=== PATIENT | male | born 1960 | race Caucasian/White ===

== ENCOUNTER 2017-08-21 12:50 | Emergency (ER) | payer MEDICARE, MEDICAID ==
[~2017-08-21] VITALS: Ht 170.2 cm; Wt 100.0 kg
[~2017-08-21 12:50] MED LIST: CLIN300C85 PO; HYDR-569 PO; LORA10TA65 PO; PANT-47 PO
[2017-08-21] MEDS ORDERED: SULF1TAB49 PO (13:26)
[2017-08-21] MEDS ORDERED: CEPH500C5 PO (13:26)
[2017-08-21] MEDS ORDERED: sulfamethoxazole/trimethoprim DS (800/160mg) tablet PO ONE (13:30)
[2017-08-21] MEDS ORDERED: cephalexin 250mg capsule PO ONE (13:30)
[2017-08-21 13:40] VITALS: BP 126/50
== END 2017-08-21 13:43 | disposition home or self-care (01) ==
LOC: ER 12:51
DX: L03.116 Cellulitis of left lower limb (principal); L03.115 Cellulitis of right lower limb; F12.90 Cannabis use, unspecified, uncomplicated; F15.90 Other stimulant use, unspecified, uncomplicated; Z86.14 Personal history of Methicillin resistant Staphylococcus aureus infection; Z60.2 Problems related to living alone; Z59.0 Homelessness; Z98.890 Other specified postprocedural states; Z79.899 Other long term (current) drug therapy
CPT/HCPCS: 99284

== ENCOUNTER 2017-11-16 13:19 | Emergency (ER) | payer MEDICARE, MEDICAID ==
[~2017-11-16] VITALS: Ht 172.7 cm; Wt 80.0 kg
[~2017-11-16 13:19] MED LIST changes: +CEPH500C5 PO; +HYDR-4383 PO; -HYDR-569 PO
[2017-11-16] MEDS ORDERED: LIDOcaine 1.5% w/epinephrine 1:200,000 5ml ampul IJ ONE (13:55)
[2017-11-16] MEDS ORDERED: SULF1TAB49 PO (14:24)
[2017-11-16] MEDS ORDERED: TRAM50TA2 PO (14:24)
[2017-11-16 14:36] VITALS: BP 134/71
== END 2017-11-16 14:43 | disposition home or self-care (01) ==
LOC: ER 13:20
DX: L02.415 Cutaneous abscess of right lower limb (principal); F12.90 Cannabis use, unspecified, uncomplicated; F15.90 Other stimulant use, unspecified, uncomplicated; Z59.0 Homelessness; Z56.0 Unemployment, unspecified; Z86.14 Personal history of Methicillin resistant Staphylococcus aureus infection; Z98.890 Other specified postprocedural states; Z79.899 Other long term (current) drug therapy
CPT/HCPCS: 10060; 87070; 87077; 87186; 99284; J3490

== ENCOUNTER 2018-02-11 20:59 | Emergency (ER) | payer MEDICARE, MEDICAID ==
[~2018-02-11] VITALS: Ht 167.6 cm; Wt 71.0 kg
[2018-02-11 21:10] VITALS: BP 143/100
[2018-02-11] MEDS ORDERED: LIDOcaine 1.5% w/epinephrine 1:200,000 5ml ampul IJ ONE (21:30)
[2018-02-11] MEDS ORDERED: LIDOcaine 1% w/epiNEPHrine 1:200,000 30ml vial IJ ONE (21:35)
[2018-02-11] MEDS ORDERED: morphine 10mg/ml inj. IV ONE (21:55)
[2018-02-11] MEDS ORDERED: morphine 5 MG/ML injection IV ONE (21:55)
== END 2018-02-12 00:25 | disposition home or self-care (01) ==
LOC: ER 20:59
DX: S81.812A Laceration without foreign body, left lower leg, initial encounter (principal); Z86.14 Personal history of Methicillin resistant Staphylococcus aureus infection; F12.90 Cannabis use, unspecified, uncomplicated; F15.90 Other stimulant use, unspecified, uncomplicated; Z79.2 Long term (current) use of antibiotics; Z79.899 Other long term (current) drug therapy; Z59.0 Homelessness; Z56.0 Unemployment, unspecified; V19.9XXA Pedal cyclist (driver) (passenger) injured in unspecified traffic accident, initial encounter; Y93.55 Activity, bike riding; Y92.488 Other paved roadways as the place of occurrence of the external cause; Y99.8 Other external cause status
CPT/HCPCS: 12004; 96374; 99283; J2270; J3490

== ENCOUNTER 2018-03-21 15:28 | Emergency (ER) | payer MEDICARE, MEDICAID ==
[~2018-03-21] VITALS: Ht 170.2 cm; Wt 88.6 kg
[2018-03-21] MEDS ORDERED: cephalexin 250mg capsule PO ONE (16:25)
[2018-03-21] MEDS ORDERED: sulfamethoxazole/trimethoprim DS (800/160mg) tablet PO ONE (16:25)
[2018-03-21] MEDS ORDERED: BACDS PO (16:30)
[2018-03-21] MEDS ORDERED: CEPH500C5 PO (16:30)
[2018-03-21 16:35] VITALS: BP 132/76
== END 2018-03-21 16:42 | disposition home or self-care (01) ==
LOC: ER 15:29
DX: L03.116 Cellulitis of left lower limb (principal); F12.90 Cannabis use, unspecified, uncomplicated; F15.90 Other stimulant use, unspecified, uncomplicated; Z86.14 Personal history of Methicillin resistant Staphylococcus aureus infection; Z98.890 Other specified postprocedural states; Z79.899 Other long term (current) drug therapy; Z87.891 Personal history of nicotine dependence; Z59.0 Homelessness; Z56.0 Unemployment, unspecified; Z60.2 Problems related to living alone
CPT/HCPCS: 99283

== ENCOUNTER 2018-05-15 05:30 | Emergency (ER) | payer MEDICARE, MEDICAID ==
[~2018-05-15] VITALS: Ht 170.2 cm; Wt 80.0 kg
[~2018-05-15 05:30] MED LIST changes: +CLIN-96 PO; -CLIN300C85 PO
[2018-05-15 05:38] VITALS: BP 122/75
[2018-05-15] MEDS ORDERED: ibuprofen tablet 400 MG TABLET PO ONE (05:55)
--- NOTE | 2018-05-15 06:11 | NUR ---
declined crutches, noreen wrapped
== END 2018-05-15 06:43 | disposition home or self-care (01) ==
LOC: ER 05:30
DX: S93.492A Sprain of other ligament of left ankle, initial encounter (principal); F12.10 Cannabis abuse, uncomplicated; F15.10 Other stimulant abuse, uncomplicated; Z56.0 Unemployment, unspecified; Z79.899 Other long term (current) drug therapy; W01.0XXA Fall on same level from slipping, tripping and stumbling without subsequent striking against object, initial encounter; Y93.89 Activity, other specified; Y92.89 Other specified places as the place of occurrence of the external cause; Y99.8 Other external cause status
CPT/HCPCS: 73610; 99283

== ENCOUNTER 2019-09-14 07:06 | Emergency (ER) | payer MEDICARE, MEDICAID ==
[~2019-09-14] VITALS: Ht 170.2 cm; Wt 68.2 kg
[~2019-09-14 07:06] MED LIST changes: -CEPH500C5 PO; -CLIN-96 PO; +CLIN-97 PO
[2019-09-14 07:15] VITALS: BP 145/95
== END 2019-09-14 07:41 | disposition home or self-care (01) ==
LOC: ER 07:07
DX: F15.10 Other stimulant abuse, uncomplicated (principal); F12.90 Cannabis use, unspecified, uncomplicated; Z86.69 Personal history of other diseases of the nervous system and sense organs; Z86.14 Personal history of Methicillin resistant Staphylococcus aureus infection; Z98.890 Other specified postprocedural states; Z72.89 Other problems related to lifestyle; Z56.0 Unemployment, unspecified; Z59.0 Homelessness; Z79.2 Long term (current) use of antibiotics; Z79.899 Other long term (current) drug therapy
CPT/HCPCS: 99281

== ENCOUNTER 2019-10-19 13:20 | Emergency (ER) | payer MEDICARE, MEDICAID ==
[~2019-10-19] VITALS: Ht 172.7 cm; Wt 85.0 kg
[2019-10-19] MEDS ORDERED: HYDROcodone/acetaminophen 5mg/325mg tablet PO ONE (13:35)
[2019-10-19 15:04] VITALS: BP 135/100
== END 2019-10-19 15:08 | disposition home or self-care (01) ==
LOC: ER 13:20
DX: M25.572 Pain in left ankle and joints of left foot (principal); R07.89 Other chest pain; F12.90 Cannabis use, unspecified, uncomplicated; F15.90 Other stimulant use, unspecified, uncomplicated; Z86.69 Personal history of other diseases of the nervous system and sense organs; Z86.14 Personal history of Methicillin resistant Staphylococcus aureus infection; Z98.890 Other specified postprocedural states; Z60.2 Problems related to living alone; Z59.0 Homelessness; Z56.0 Unemployment, unspecified; Z79.2 Long term (current) use of antibiotics; Z79.899 Other long term (current) drug therapy; X50.1XXA Overexertion from prolonged static or awkward postures, initial encounter; Y93.89 Activity, other specified; Y92.89 Other specified places as the place of occurrence of the external cause; Y99.8 Other external cause status
CPT/HCPCS: 71100; 73610; 99284

== ENCOUNTER 2020-01-29 16:45 | Emergency (ER) | payer MEDICARE, MEDICAID ==
[~2020-01-29] VITALS: Ht 170.2 cm; Wt 77.3 kg
[2020-01-29 16:57] VITALS: BP 143/81
[2020-01-29] MEDS ORDERED: mupirocin 2% ointment 22GM TP ONE (17:30)
[2020-01-29] MEDS ORDERED: MUPI22OI30 TOP (17:45)
[2020-01-29] MEDS ORDERED: ACET-1008 PO (17:48)
== END 2020-01-29 18:01 | disposition home or self-care (01) ==
LOC: ER 16:46
DX: S60.562A Insect bite (nonvenomous) of left hand, initial encounter (principal); S20.469A Insect bite (nonvenomous) of unspecified back wall of thorax, initial encounter; F15.10 Other stimulant abuse, uncomplicated; F12.10 Cannabis abuse, uncomplicated; Z56.0 Unemployment, unspecified; Z59.0 Homelessness; Z79.899 Other long term (current) drug therapy
CPT/HCPCS: 99283

== ENCOUNTER 2021-02-04 04:57 | Emergency (ER) | payer MEDICARE, MEDICAID ==
[~2021-02-04] VITALS: Ht 167.6 cm; Wt 75.0 kg
[2021-02-04 05:05] VITALS: BP 122/83
[2021-02-04 06:42] LABS: URINE AMPHETAMINE SCREEN POSITIVE (Neg); URINE BARBITUATE SCREEN NEGATIVE (Neg); URINE BENZODIAZEPINES SCREEN NEGATIVE (Neg); URINE CANNABINOID SCREEN POSITIVE (Neg); URINE COCAINE SCREEN NEGATIVE (Neg); URINE METHADONE SCREEN NEGATIVE (Neg); URINE OPIATE SCREEN NEGATIVE (Neg); URINE PHENCYCLIDINE SCREEN NEGATIVE (Neg)
== END 2021-02-04 06:22 | disposition left against medical advice (07) ==
LOC: ER 04:58
DX: R45.6 Violent behavior (principal); R00.0 Tachycardia, unspecified; G43.909 Migraine, unspecified, not intractable, without status migrainosus; Z86.14 Personal history of Methicillin resistant Staphylococcus aureus infection; F12.90 Cannabis use, unspecified, uncomplicated; F15.90 Other stimulant use, unspecified, uncomplicated; Z56.0 Unemployment, unspecified; Z59.00 Homelessness unspecified; Z79.2 Long term (current) use of antibiotics; Z79.899 Other long term (current) drug therapy
CPT/HCPCS: 80305; 99283

== ENCOUNTER 2021-03-20 05:07 | Emergency (ER) | payer MEDICARE, MEDICAID ==
[~2021-03-20] VITALS: Ht 170.2 cm; Wt 71.4 kg
[2021-03-20 09:29] VITALS: BP 160/94
== END 2021-03-20 09:39 | disposition home or self-care (01) ==
LOC: ER 05:07
DX: S06.0X0A Concussion without loss of consciousness, initial encounter (principal); S60.512A Abrasion of left hand, initial encounter; S60.511A Abrasion of right hand, initial encounter; F12.90 Cannabis use, unspecified, uncomplicated; F15.90 Other stimulant use, unspecified, uncomplicated; Z86.14 Personal history of Methicillin resistant Staphylococcus aureus infection; Z86.69 Personal history of other diseases of the nervous system and sense organs; Z98.890 Other specified postprocedural states; Z72.89 Other problems related to lifestyle; Z56.0 Unemployment, unspecified; Z60.2 Problems related to living alone; Z59.00 Homelessness unspecified; Z79.2 Long term (current) use of antibiotics; Z79.899 Other long term (current) drug therapy; V18.2XXA Unspecified pedal cyclist injured in noncollision transport accident in nontraffic accident, initial encounter; Y93.89 Activity, other specified; Y92.89 Other specified places as the place of occurrence of the external cause; Y99.8 Other external cause status
CPT/HCPCS: 70450; 72125; 99284

== ENCOUNTER 2021-08-10 00:29 | Emergency (ER) | payer MEDICARE, MEDICAID ==
[~2021-08-10] VITALS: Ht 170.2 cm; Wt 77.3 kg
[2021-08-10] MEDS ORDERED: ibuprofen tablet 400 MG TABLET PO ONE (02:45)
[2021-08-10 03:42] VITALS: BP 145/84
== END 2021-08-10 03:43 | disposition home or self-care (01) ==
LOC: ER 00:29
DX: S51.812A Laceration without foreign body of left forearm, initial encounter (principal); S93.402A Sprain of unspecified ligament of left ankle, initial encounter; F12.10 Cannabis abuse, uncomplicated; F15.10 Other stimulant abuse, uncomplicated; Z86.14 Personal history of Methicillin resistant Staphylococcus aureus infection; V98.8XXA Other specified transport accidents, initial encounter; Y93.89 Activity, other specified; Y92.89 Other specified places as the place of occurrence of the external cause; Y99.8 Other external cause status
CPT/HCPCS: 73610; 99283; A6449

== ENCOUNTER 2021-11-20 17:04 | Emergency (ER) | payer MEDICARE, MEDICAID ==
[~2021-11-20] VITALS: Ht 167.6 cm; Wt 81.8 kg
[2021-11-20 18:26] VITALS: BP 114/71
== END 2021-11-20 19:38 | disposition left against medical advice (07) ==
LOC: ER 17:04
DX: R10.9 Unspecified abdominal pain (principal); Z53.21 Procedure and treatment not carried out due to patient leaving prior to being seen by health care provider

== ENCOUNTER 2022-03-04 11:54 | Emergency (ER) | payer MEDICARE, MEDICAID ==
[~2022-03-04] VITALS: Ht 170.2 cm; Wt 81.8 kg
[2022-03-04 12:00] VITALS: BP 116/89
[2022-03-04] MEDS ORDERED: DICL20GE TP (13:31)
[2022-03-04] MEDS ORDERED: NAPR-56 PO (13:31)
== END 2022-03-04 14:19 | disposition home or self-care (01) ==
LOC: ER 11:54
DX: S81.802A Unspecified open wound, left lower leg, initial encounter (principal); T84.84XA Pain due to internal orthopedic prosthetic devices, implants and grafts, initial encounter; M21.162 Varus deformity, not elsewhere classified, left knee; F15.10 Other stimulant abuse, uncomplicated; F12.90 Cannabis use, unspecified, uncomplicated; Z60.2 Problems related to living alone; Z86.14 Personal history of Methicillin resistant Staphylococcus aureus infection; Z59.00 Homelessness unspecified; Z56.0 Unemployment, unspecified; Z28.9 Immunization not carried out for unspecified reason; Z98.890 Other specified postprocedural states; Z79.899 Other long term (current) drug therapy; X50.1XXA Overexertion from prolonged static or awkward postures, initial encounter; Y93.89 Activity, other specified; Y92.89 Other specified places as the place of occurrence of the external cause; Y99.8 Other external cause status
CPT/HCPCS: 73560; 99283

== ENCOUNTER 2022-03-31 21:11 | Emergency (ER) | payer MEDICARE, MEDICAID ==
[~2022-03-31] VITALS: Ht 170.2 cm; Wt 77.1 kg
[~2022-03-31 21:11] MED LIST changes: +DICL20GE TP; +NAPR-56 PO
[2022-03-31 22:26] VITALS: BP 125/75
== END 2022-03-31 22:28 | disposition home or self-care (01) ==
LOC: ER 21:12
DX: F15.93 Other stimulant use, unspecified with withdrawal (principal); F12.90 Cannabis use, unspecified, uncomplicated; Z59.00 Homelessness unspecified; Z56.0 Unemployment, unspecified
CPT/HCPCS: 99283

== ENCOUNTER 2022-04-15 06:39 | Emergency (ER) | payer MEDICARE, MEDICAID ==
[~2022-04-15] VITALS: Ht 170.2 cm; Wt 80.0 kg
[~2022-04-15 06:39] MED LIST changes: -NAPR-56 PO
[2022-04-15] MEDS ORDERED: ketorolac trometh. 30mg/ml inj. IM ONE (09:00)
[2022-04-15 10:12] VITALS: BP 138/94
== END 2022-04-15 10:20 | disposition home or self-care (01) ==
LOC: ER 06:40
DX: S09.90XA Unspecified injury of head, initial encounter (principal); R51.9 Headache, unspecified; R11.0 Nausea; F12.10 Cannabis abuse, uncomplicated; M54.2 Cervicalgia; F15.10 Other stimulant abuse, uncomplicated; Z86.14 Personal history of Methicillin resistant Staphylococcus aureus infection; Z59.00 Homelessness unspecified; Z79.899 Other long term (current) drug therapy; Z79.1 Long term (current) use of non-steroidal anti-inflammatories (NSAID); Z56.0 Unemployment, unspecified; X58.XXXA Exposure to other specified factors, initial encounter; Y93.89 Activity, other specified; Y92.89 Other specified places as the place of occurrence of the external cause; Y99.8 Other external cause status
CPT/HCPCS: 70450; 72125; 96372; 99285; J1885

== ENCOUNTER 2022-06-30 14:41 | Emergency (ER) | payer MEDICARE, MEDICAID ==
[~2022-06-30] VITALS: Ht 167.6 cm; Wt 81.8 kg
[2022-06-30 14:59] VITALS: BP 148/79
[2022-06-30 15:42] LABS: BASOPHILS # (AUTO) 0.1 X10'3 (0-0.2); EOSINOPHILS # (AUTO) 0.1 X10'3 (0-0.9); EOSINOPHILS % (AUTO) 1.9 % (0-6); HEMATOCRIT 40.1 % (42.0-52.0); HEMOGLOBIN 13.3 g/dl (14.0-17.9); LYMPHOCYTES # (AUTO) 1.5 X10'3 (1.1-4.8); LYMPHOCYTES % (AUTO) 27.3 % (21-51); MEAN CORPUSCULAR HEMOGLOBIN 28.8 PG (27.0-31.0); MEAN CORPUSCULAR HGB CONC 33.1 g/dL (33.0-36.5); MEAN CORPUSCULAR VOLUME 86.9 FL (78-98); MEAN PLATELET VOLUME 8.5 FL (7.4-10.4); MONOCYTES # (AUTO) 0.5 X10'3 (0-0.9); MONOCYTES % (AUTO) 8.3 % (2-12); NEUTROPHILS # (AUTO) 3.4 X10'3 (1.8-7.7); NEUTROPHILS % (AUTO) 61.5 % (42-75); PLATELET COUNT 284 X10'3 (140-440); RED BLOOD COUNT 4.61 X10'6 (4.70-6.10); WHITE BLOOD COUNT 5.5 X10'3 (4.5-11.0)
[2022-06-30 15:56] LABS: ALANINE AMINOTRANSFERASE 20 U/L (12-78); ALBUMIN 3.4 G/DL (3.4-5.0); ALBUMIN/GLOBULIN RATIO 1.1 (1.1-1.5); ALKALINE PHOSPHATASE 129 IU/L (46-116); ANION GAP 9 (8-16); ASPARTATE AMINO TRANSFERASE 13 U/L (10-37); BILIRUBIN,TOTAL 0.4 MG/DL (0.1-1.0); BLOOD UREA NITROGEN 16 MG/DL (7-18); BUN/CREATININE RATIO 15.1 (10.0-20.0); CALCIUM 8.1 MG/DL (8.5-10.1); CHLORIDE 106 MMOL/L (99-107); CREATININE 1.06 MG/DL (0.60-1.10); GLUCOSE 128 MG/DL (70-104); POTASSIUM 3.4 MMOL/L (3.5-5.1); SODIUM 143 MMOL/L (135-145); TOTAL CARBON DIOXIDE 27.6 MMOL/L (24-32); TOTAL PROTEIN 6.4 G/DL (6.4-8.2); eGFR 71 ML/MIN
[2022-06-30] MEDS ORDERED: CEPH-585 PO (16:54)
[2022-06-30] MEDS ORDERED: cephalexin 250mg capsule PO ONE (16:55)
== END 2022-06-30 17:31 | disposition home or self-care (01) ==
LOC: ER 14:42
DX: R60.0 Localized edema (principal); L03.115 Cellulitis of right lower limb; L03.116 Cellulitis of left lower limb; Z86.14 Personal history of Methicillin resistant Staphylococcus aureus infection
CPT/HCPCS: 36415; 71045; 80053; 83880; 84484; 85025; 93005; 99285

== ENCOUNTER 2022-08-31 16:58 | Emergency (ER) | payer MEDICARE, MEDICAID ==
[~2022-08-31] VITALS: Ht 170.2 cm; Wt 81.8 kg
[~2022-08-31 16:58] MED LIST changes: +CEPH-585 PO
[2022-08-31 20:35] LABS: BASOPHILS % (AUTO) 0.4 % (0-1); EOSINOPHILS # (AUTO) 0.1 X10'3 (0-0.9); EOSINOPHILS % (AUTO) 1.1 % (0-6); HEMATOCRIT 45.7 % (42.0-52.0); HEMOGLOBIN 15.2 g/dl (14.0-17.9); LYMPHOCYTES # (AUTO) 1.8 X10'3 (1.1-4.8); LYMPHOCYTES % (AUTO) 24.7 % (21-51); MEAN CORPUSCULAR HEMOGLOBIN 29.4 PG (27.0-31.0); MEAN CORPUSCULAR HGB CONC 33.4 g/dL (33.0-36.5); MEAN PLATELET VOLUME 8.4 FL (7.4-10.4); MONOCYTES # (AUTO) 0.4 X10'3 (0-0.9); MONOCYTES % (AUTO) 5.3 % (2-12); NEUTROPHILS % (AUTO) 68.5 % (42-75); PLATELET COUNT 297 X10'3 (140-440); RED BLOOD COUNT 5.19 X10'6 (4.70-6.10); RED CELL DISTRIBUTION WIDTH 14.1 % (11.5-14.5); WHITE BLOOD COUNT 7.3 X10'3 (4.5-11.0)
[2022-08-31 20:54] LABS: ALANINE AMINOTRANSFERASE 30 U/L (12-78); ALBUMIN 3.9 G/DL (3.4-5.0); ALBUMIN/GLOBULIN RATIO 1.1 (1.1-1.5); ALKALINE PHOSPHATASE 122 IU/L (46-116); ANION GAP 8 (8-16); ASPARTATE AMINO TRANSFERASE 19 U/L (10-37); BILIRUBIN,TOTAL 0.6 MG/DL (0.1-1.0); BLOOD UREA NITROGEN 9 MG/DL (7-18); BUN/CREATININE RATIO 11.1 (10.0-20.0); CALCIUM 9.1 MG/DL (8.5-10.1); CHLORIDE 106 MMOL/L (99-107); CREATININE 0.81 MG/DL (0.60-1.10); ETHANOL < 0.010 GM/DL (0.0-0.010); GLUCOSE 101 MG/DL (70-104); POTASSIUM 4.6 MMOL/L (3.5-5.1); SODIUM 142 MMOL/L (135-145); TOTAL CARBON DIOXIDE 27.6 MMOL/L (24-32); TOTAL PROTEIN 7.4 G/DL (6.4-8.2); eGFR > 90 ML/MIN
[2022-08-31 22:08] LABS: CLARITY,URINE CLEAR (Clear); COLOR,URINE YELLOW (Yellow); GLUCOSE, URINE NEGATIVE (Neg); KETONES,URINE NEGATIVE (Neg); LEUKOCYTE ESTERASE ,URINE NEGATIVE (Neg); NITRITES, URINE NEGATIVE (Neg); OCCULT BLOOD,URINE NEGATIVE (Neg); PH,URINE 5.5 (4.8-8.0); PROTEIN,URINE NEGATIVE (Neg); UROBILINOGEN,URINE 0.2 E.U/dL (0.2-1.0)
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
[2022-08-31 22:26] LABS: URINE AMPHETAMINE SCREEN NEGATIVE (Neg); URINE BARBITUATE SCREEN NEGATIVE (Neg); URINE BENZODIAZEPINES SCREEN NEGATIVE (Neg); URINE CANNABINOID SCREEN POSITIVE (Neg); URINE COCAINE SCREEN NEGATIVE (Neg); URINE METHADONE SCREEN NEGATIVE (Neg); URINE OPIATE SCREEN NEGATIVE (Neg); URINE PHENCYCLIDINE SCREEN NEGATIVE (Neg)
[2022-08-31 22:27] LABS: UA COLLECTION TYPE CLN CATCH MIDSTREAM
--- NOTE | 2022-09-01 00:20 | NUR ---
Dr. Fajardo here to see pt. Pt woke up answered her questions. After she left he ambulated independently to the BR went back to bed, is sleeping at this time.
--- NOTE | 2022-09-01 05:40 | NUR ---
Pt still asleep.
--- NOTE | 2022-09-01 07:05 | NUR ---
Pt resting comfortably, on left side. Respirations even and unlabored.
--- NOTE | 2022-09-01 08:07 | NUR ---
PACKET FAXED TO [facility] @[id number]
--- NOTE | 2022-09-01 09:22 | NUR ---
[facility] clinician at bedside, conversation appropriate.
--- NOTE | 2022-09-01 11:07 | NUR ---
Pt awake eating snack. Pt states No [facility] currently have no beds. Needs to call back tomorrow. Pt has resource paperwork with him.
[2022-09-01 15:25] VITALS: BP 138/88; PULSE 90; RESP 17; TEMP 97.4; O2SAT 97
--- NOTE | 2022-09-01 15:30 | NUR ---
DISCHARGE NOTE Patient left unit at 1315. Pt left with personal belongings. Pt A&Ox4. Pt denies all psychotic symptoms. Pt given No boundaries flyer and reminded he needs to call every day until a bed opens up. Pt verbalized understanding.
== END 2022-09-01 13:15 | disposition home or self-care (01) ==
LOC: ER 16:59
DX: R45.851 Suicidal ideations (principal); Z20.822 Contact with and (suspected) exposure to COVID-19; Z86.14 Personal history of Methicillin resistant Staphylococcus aureus infection; F15.10 Other stimulant abuse, uncomplicated; F12.10 Cannabis abuse, uncomplicated; Z59.00 Homelessness unspecified; Z56.0 Unemployment, unspecified
CPT/HCPCS: 36415; 80053; 80305; 80320; 81003; 85025; 87811; 99285

== ENCOUNTER 2024-03-03 06:44 | Emergency (ER) | payer BC, MEDICAID ==
[~2024-03-03] VITALS: Ht 170.2 cm; Wt 77.4 kg
[~2024-03-03 06:44] MED LIST changes: -CEPH-585 PO
[2024-03-03 06:45] VITALS: BP 132/87; PULSE 98; RESP 18; O2SAT 96
[2024-03-03] MEDS ORDERED: CEPH-585 PO (09:36)
[2024-03-03 09:53] VITALS: TEMP 97.8
== END 2024-03-03 09:56 | disposition home or self-care (01) ==
LOC: ER 06:44
DX: L03.113 Cellulitis of right upper limb (principal); F12.90 Cannabis use, unspecified, uncomplicated; F15.90 Other stimulant use, unspecified, uncomplicated; Z98.890 Other specified postprocedural states
CPT/HCPCS: 99283

== ENCOUNTER 2024-03-20 17:37 | Emergency (ER) | payer BC, MEDICAID ==
[~2024-03-20] VITALS: Ht 170.2 cm; Wt 81.8 kg
[2024-03-20] MEDS ORDERED: NALO4SPR BOTHNARES (18:13)
[2024-03-20] MEDS: ondansetron/PF 4mg/2ml inj IM ONE (18:42)
[2024-03-20 20:15] VITALS: BP 135/89; PULSE 83; RESP 17; TEMP 98.9; O2SAT 97
== END 2024-03-20 20:17 | disposition home or self-care (01) ==
LOC: ER 17:38
DX: T40.411A Poisoning by fentanyl or fentanyl analogs, accidental (unintentional), initial encounter (principal); F12.90 Cannabis use, unspecified, uncomplicated; F15.90 Other stimulant use, unspecified, uncomplicated; Z79.899 Other long term (current) drug therapy; Z56.0 Unemployment, unspecified; Z60.2 Problems related to living alone; Z72.89 Other problems related to lifestyle; Z59.00 Homelessness unspecified; Y92.89 Other specified places as the place of occurrence of the external cause
CPT/HCPCS: 96372; 99284; J2405

== ENCOUNTER 2024-06-24 08:32 | Emergency (ER) | payer BC, MEDICAID ==
[~2024-06-24] VITALS: Ht 170.2 cm; Wt 75.3 kg
[~2024-06-24 08:32] MED LIST changes: +NALO4SPR BOTHNARES
[2024-06-24 08:58] LABS: BASOPHILS % (AUTO) 0.8 % (0-1); EOSINOPHILS # (AUTO) 0.2 X10'3 (0-0.9); EOSINOPHILS % (AUTO) 2.9 % (0-6); HEMATOCRIT 42.8 % (42.0-52.0); HEMOGLOBIN 14.5 g/dl (14.0-17.9); LYMPHOCYTES % (AUTO) 32.9 % (21-51); MEAN CORPUSCULAR HEMOGLOBIN 29.3 PG (27.0-31.0); MEAN CORPUSCULAR HGB CONC 33.9 g/dL (33.0-36.5); MEAN CORPUSCULAR VOLUME 86.5 FL (78-98); MEAN PLATELET VOLUME 8.6 FL (7.4-10.4); MONOCYTES # (AUTO) 0.6 X10'3 (0-0.9); MONOCYTES % (AUTO) 10.7 % (2-12); NEUTROPHILS # (AUTO) 3.1 X10'3 (1.8-7.7); NEUTROPHILS % (AUTO) 52.7 % (42-75); PLATELET COUNT 259 X10'3 (140-440); RED BLOOD COUNT 4.94 X10'6 (4.70-6.10); RED CELL DISTRIBUTION WIDTH 15.2 % (11.5-14.5); WHITE BLOOD COUNT 5.9 X10'3 (4.5-11.0)
--- NOTE | 2024-06-24 08:58 | Physician Documentation ---
History of Present Illness ~ Chief Complaint: Chest Pain Stated Complaint: CP Time Seen by MD: 08:57 Primary Medical Doctor: [facility] HPI 64-year-old male presenting with left-sided chest pain. He tells me that he felt normal yesterday. This morning he woke up and had pain in the left side of his chest. He tells me there is a small painful lump on the left chest wall. He states that this is the painful area, denies any deeper anterior chest pain. He tells me that 2 years ago he had a similar pain and howie mp at that site, which then exploded, and pus came out. No fevers or chills. No trauma to the chest. No chest pressure, shortness of breath, nausea, vomiting, abdominal pain. No other associated symptoms. Medication Reconciliation Allergies: Coded Allergies: No Known Allergies (Unverified , 03/31/22) Scheduled Cephalexin*Monohydrate* (Keflex*), 1 CAP PO TID Clindamycin HCL* (Clindamycin HCL*), 1 CAP PO Q6H Diclofenac Sodium (Voltaren Arthritis Pain), 1 APPLIC TP TID Loratadine (Claritin), 1 TAB PO DAILY Naloxone HCl (Narcan), 1 SPRAYS BOTHNARES ONCE Pantoprazole Sodium (PROTONIX tablet), 40 MG PO DAILY Scheduled PRN Hydrocodone/Acetaminophen ([place] 5-325 Tablet), 1 TAB PO TID PRN PRN for severe pain Past Medical History Past Medical History: Seizures, MRSA Abscess Past Surgical History: noncontributory, orthopedic surgeries Patient History: Patient reports no known family medical history. Alcohol Use: Occasionally Drug Use: marijuana, methamphetamine Lives with: Family, Alone Lives In: Homeless Occupation: unemployed Review of Systems Constitutional: Denies: fever Musculoskeletal: Reports: pain Integumentary: Reports: lesions Physical Exam Vital Signs: Temperature: 98.0, Source: Temporal, Heart Rate: 97, Respiratory Rate: 15, BP: 143/98, Pulse Oximetry: 97, Weight: 75.260 Physical Exam General: This is a pleasant and overall well-appearing middle-aged man sitting calmly in bed Heart: Regular rate and rhythm, no loud murmur, normal-appearing peripheral perfusion, normal left radial pulse Lungs: Clear breath sounds bilateral, normal work of breathing, normal oxygen saturation on room air Chest wall: Over the left anterior chest, just below the left clavicle, there is a palpable lump, with mild surrounding erythema, tender, with a small scar just above it. It does reproduce his pain. Abdomen: Soft, nondistended, nontender all quadrants Extremities: Warm and well-perfused, no edema Neuro: Alert and oriented, no focal deficits Psychiatric: Calm and cooperative with exam Procedures Procedures Procedure note: Aspiration/drainage Indication: Possible abscess Consent: Verbal consent obtained from the patient Procedure: The skin was cleaned and anesthetized with 1% lidocaine with epinep hrine. Using a larger needle, needle aspiration was attempted at the area of the suspected abscess. No fluid was obtained. No complications. The patient tolerated this well. The wound was bandaged. Progress Results/Orders Results/Orders Orders - MARAL HARVEY MD Chest,Single View (06/24/24 08:33) Monitor (06/24/24 08:33) Saline Lock (06/24/24 08:33) Oxygen (06/24/24 08:33) Completed Orders - MARLA HARVEY MD Chest,Single View (06/24/24 08:33) Cbc/Diff (06/24/24 08:33) PBNP (06/24/24 08:33) Electrocardiogram (06/24/24 08:33) CMP (06/24/24 08:33) Hs Troponin I W Calculations (06/24/24 08:33) Acetaminophen 325mg Tablet (Tylenol Tabl (06/24/24 09:45) Diphenhydramine Capsule (Benadryl Capsul (06/24/24 09:45) Cephalexin Capsule (Keflex Capsule) (06/24/24 09:45) Vital Signs 06/24/24 06/24/24 06/24/24 06/24/24 08:34 08:56 09:43 10:06 Temp 98.0 98.0 Pulse 97 72 77 Resp 15 18 15 B/P (MAP) 143/98 131/87 (102) 127/98 Pulse Ox 97 98 98 O2 Flow Rate 0 Laboratory Tests Test 06/24/24 08:44 White Blood Count 5.9 Red Blood Count 4.94 Hemoglobin 14.5 Hematocrit 42.8 Mean Corpuscular Volume 86.5 Mean Corpuscular Hemoglobin 29.3 Mean Corpuscular Hemoglobin Concent 33.9 Red Cell Distribution Width 15.2 H Platelet Count 259 Mean Platelet Volume 8.6 Neutrophils (%) (Auto) 52.7 Lymphocytes (%) (Auto) 32.9 Monocytes (%) (Auto) 10.7 Eosinophils (%) (Auto) 2.9 Basophils (%) (Auto) 0.8 Neutrophils # (Auto) 3.1 Lymphocytes # (Auto) 2.0 Monocytes # (Auto) 0.6 Eosinophils # (Auto) 0.2 Basophils # (Auto) 0.0 CBC Comment Sodium Level 140 Potassium Level 3.8 Chloride Level 106 Carbon Dioxide Level 29.5 Anion Gap 5 L Blood Urea Nitrogen 25 H Creatinine 1.02 Estimated GFR/1.73 m2 74 BUN/Creatinine Ratio 24.5 H Glucose Level 90 Calcium Level 8.5 Total Bilirubin 0.7 Aspartate Amino Transf (AST/SGOT) 29 Alanine Aminotransferase (ALT/SGPT) 47 Alkaline Phosphatase 122 H Troponin I High Sensitivity 10 Pro-B-Type Natriuretic Peptide 46 Total Protein 6.9 Albumin 3.6 Globulin 3.3 Albumin/Globulin Ratio 1.1 Chemistry Comments EKG/XRAY/CT/US/VASC/MRI EKG : Additional Comment I personally interpreted the EKG and this shows: Sinus rhythm, rate 81, T-wave inversion in the inferior leads, no STEMI, QTC 419 Chest X-Ray : Additional Comments I personally reviewed the x-ray, and it shows: No focal consolidation or mass in the left lung harley, no pneumothorax Medical Decision Making Differential Dx:Considerations: Include: angina, aortic dissection, chest wall pain, myocardial infarction, pericarditis, pleuritis Additional Information Differential includes abscess Assessment The patient presents with a reported left-sided chest pain. At triage, cardiac order set initiated. On my exam, he has reproducible chest wall pain with a small palpable lump, that seems possibly a small abscess. EKG with nonspecific changes but no STEMI. Labs are unremarkable, and I doubt ACS or other dangerous heart or lung problem. Chest x-ray with no acute process. He does have a small tender nodule over his chest, that seemed possibly an abscess or scar tissue with surrounding cellulitis. A needle aspiration was attempted, but no purulent material was removed. He will be treated with a short course of Keflex as well as other symptomatic treatment including Benadryl for itching and ibuprofen or Tylenol for pain. Return precautions given for worsening symptoms. Departure Time of Disposition: 09:58 Disposition: 01 HOME / SELF CARE / HOMELESS Impression: Primary Impression: Tenderness of chest wall Additional Impression: Cellulitis of chest wall Condition: Stable Discharge Instructions: Cellulitis, Adult, [id number] Referrals: NO PRIMARY CARE PROVIDER (PCP) Prescriptions Cephalexin*Monohydrate* (Keflex*) 500 Mg Capsule 1 CAP PO TID for 5 Days, #15 CAP Prov: MARAL HARVEY MD 06/24/24 Education Educated: Patient Educated regarding: diagnosis, treatment, need for follow up Signature Scribe Signature: [email or web address] Attestation: MARAL Cid MD June 24, 2024 08:58
--- NOTE | 2024-06-24 09:18 | RADIOLOGY REPORT ---
EXAM: DI CHEST,SINGLE VIEW HISTORY: CP COMPARISON: None TECHNIQUE: Portable upright AP view of the chest was performed. FINDINGS: There is central interstitial prominence. No pneumothorax or consolidative infiltrates. The heart is not enlarged. There is mild thoracic scoliosis. IMPRESSION: Central interstitial prominence may be due to reactive airways disease or mild CHF. The lungs are ot herwise clear.
[2024-06-24 09:22] LABS: ALANINE AMINOTRANSFERASE 47 U/L (12-78); ALBUMIN 3.6 G/DL (3.4-5.0); ALBUMIN/GLOBULIN RATIO 1.1 (1.1-1.5); ALKALINE PHOSPHATASE 122 IU/L (46-116); ANION GAP 5 (8-16); ASPARTATE AMINO TRANSFERASE 29 U/L (10-37); BILIRUBIN,TOTAL 0.7 MG/DL (0.1-1.0); BLOOD UREA NITROGEN 25 MG/DL (7-18); BUN/CREATININE RATIO 24.5 (10.0-20.0); CALCIUM 8.5 MG/DL (8.5-10.1); CHLORIDE 106 MMOL/L (99-107); CREATININE 1.02 MG/DL (0.60-1.10); GLUCOSE 90 MG/DL (70-104); POTASSIUM 3.8 MMOL/L (3.5-5.1); SODIUM 140 MMOL/L (135-145); TOTAL CARBON DIOXIDE 29.5 MMOL/L (24-32); TOTAL PROTEIN 6.9 G/DL (6.4-8.2); eCRCL 70 ML/MIN; eGFR 74 ML/MIN
[2024-06-24 09:29] LABS: PRO BRAIN NATRIURETIC PEPTIDE 46 PG/ML (0-125)
[2024-06-24 09:43] VITALS: TEMP 98
[2024-06-24] MEDS ORDERED: cephalexin 250mg capsule PO ONE (09:45)
[2024-06-24] MEDS ORDERED: diphenhydrAMINE 25mg capsule PO ONE (09:45)
[2024-06-24] MEDS ORDERED: acetaminophen 325mg tablet PO ONE (09:45)
[2024-06-24] MEDS ORDERED: CEPH-585 PO (10:00)
[2024-06-24 10:06] VITALS: BP 127/98; PULSE 77; RESP 15; O2SAT 98
--- NOTE | 2024-06-24 11:51 | ELECTROCARDIOGRAPH REPORT ---
[facility] Test Date: 2024-06-24 Test Time: 08:37:03 Pat Name: KARY LAW Department: EMERGENCY ROOM Room: Gender: M [employer]ocational [employer] Counselor: KARIN : 1960 Requested By: MARAL HARVEY Order Number: [id number] Reading MD: Measurements Intervals [place] Rate: 81 P: 38 CA: 164 QRS: -18 QRSD: 98 T: -4 QT: 361 QTc: 419 Interpretive Statements Sinus rhythm Low voltage, precordial leads Left ventricular hypertrophy Borderline T abnormalities, inferior leads Please click the below link to view image of tracing.
== END 2024-06-24 10:11 | disposition home or self-care (01) ==
LOC: ER 08:32
DX: L03.313 Cellulitis of chest wall (principal)
CPT/HCPCS: 10160; 36415; 71045; 80053; 83880; 84484; 85025; 93005; 99285